=== PATIENT | female | born 1950 | race Two or more races ===

== ENCOUNTER 2021-01-24 07:04 | Inpatient (IN) | payer OTHER ==
[~2021-01-24] VITALS: Ht 167.6 cm; Wt 54.4 kg
[2021-01-28 16:00] VITALS: BP 122/54
[2021-01-28] MEDS ORDERED: FLUT1BLS IH (16:26)
--- NOTE | 2021-01-28 16:30 | NUR ---
Pt admitted s/p right knee arthroplasty, performed 01/22 at [facility]. A&O x3. Valentin speaking. 2L via nasal cannula. No s&s of acute distress. No reports of pain. Saturating at 97%. Voiding via stewart catheter, inserted 01/22. Full weight bearing, CGA with PT. Resting in bed. Bed at lowest position. Call light in reach. Will continue to monitor.
[2021-01-28] MEDS ORDERED: ESCI-9 PO (16:48)
[2021-01-28] MEDS ORDERED: MEMA10TA PO (16:48)
[2021-01-28] MEDS ORDERED: cholecalciferol PO (16:48)
[2021-01-28] MEDS ORDERED: LISI40TA13 PO (16:48)
[2021-01-28] MEDS ORDERED: MELO-105 PO (16:48)
[2021-01-28] MEDS ORDERED: FLUT1BLS6 IH (16:48)
[2021-01-28] MEDS ORDERED: ASPI-612 PO (16:48)
[2021-01-28] MEDS ORDERED: ALBU8.5H8 INH (16:48)
[2021-01-28] MEDS ORDERED: ALEN70TA80 PO (16:48)
[2021-01-28] MEDS ORDERED: PROP20TA7 PO (16:48)
[2021-01-28] MEDS ORDERED: Z GUARD REMEDY PASTE 57 GM TUBE TOP PRN (17:00)
[2021-01-28] MEDS ORDERED: [UNRECOGNIZED DRUG - OTHER] PO SCH (19:30)
[2021-01-28 20:54] VITALS: BP 136/67
[2021-01-28] MEDS: DOCUSATE SODIUM 100 MG CAPSULE PO SCH (21:00)
[2021-01-29 04:41] VITALS: BP 126/69
[2021-01-29 06:04] LABS: HEMATOCRIT 26.9 % (31.2-41.9); MEAN CORPUSCULAR HEMOGLOBIN 30.2 uug (24.7-32.8); MEAN CORPUSCULAR VOLUME 89.3 fL (75.5-95.3); PLATELET COUNT (AUTO) 402 K/uL (179-408)
[2021-01-29 07:35] LABS: THYROID STIMULATING HORMONE 1.537 mIU/mL (0.358-3.740)
[2021-01-29 07:53] LABS: BILIRUBIN,TOTAL 0.9 mg/dL (0.2-1.0); CREATININE 0.7 mg/dL (0.6-1.3); MAGNESIUM 2.3 mg/dL (1.8-2.4); PHOSPHOROUS 4.3 mg/dL (2.5-4.9); POTASSIUM 4.2 mmol/L (3.5-5.1); TOTAL PROTEIN, SERUM 6.9 g/dL (6.4-8.2)
[2021-01-29 07:59] VITALS: BP 126/68
[2021-01-29] MEDS: LISINOPRIL 20 MG TABLET PO SCH (08:13)
[2021-01-29] MEDS: ASPIRIN 325 MG TABLET PO SCH (08:14)
[2021-01-29] MEDS: ESCITALOPRAM OXALATE 10 MG TABLET PO SCH (08:14)
[2021-01-29] MEDS: PROPRANOLOL HCL 20 MG TABLET PO SCH ×2 (08:14→17:18)
[2021-01-29] MEDS: MEMANTINE HCL 10 MG TABLET PO SCH ×2 (08:14→17:18)
[2021-01-29] MEDS: FLUTICASONE/VILANTEROL 1 EACH BLST.W.DEV IH SCH (08:20)
[2021-01-29] MEDS ORDERED: Medication Not On Formulary EA (Lisinopril 40 MG) PO SCH (09:00)
[2021-01-29] MEDS ORDERED: MELOXICAM 7.5 MG TABLET PO SCH (09:00)
[2021-01-29] MEDS ORDERED: MIRALAX 17 GM POWD.PACK PO PRN (14:45)
[2021-01-29 16:00] VITALS: BP 135/61
[2021-01-29 20:00] VITALS: BP 122/61
[2021-01-29] MEDS ORDERED: MELATONIN 3 MG TABLET PO PRN (20:15)
[2021-01-29] MEDS: DOCUSATE SODIUM 100 MG CAPSULE PO SCH (21:09)
--- NOTE | 2021-01-29 21:45 | NUR ---
Sleeping medication of Melatonin ordered per patient's son request.
[2021-01-30 05:28] VITALS: BP 96/54
[2021-01-30] MEDS: ALENDRONATE SODIUM 70 MG TABLET PO SCH (05:42)
[2021-01-30 06:10] LABS: HEMATOCRIT 25.5 % (31.2-41.9); MEAN CORPUSCULAR HEMOGLOBIN 30.8 uug (24.7-32.8); MEAN CORPUSCULAR VOLUME 88.8 fL (75.5-95.3); PLATELET COUNT (AUTO) 477 K/uL (179-408)
--- NOTE | 2021-01-30 07:00 | NUR ---
Shift End Report: VS WNL. No complaint presented. Refused Melatonin offered last night. All needs attended and met. No significant event reported. No s/s of hypo/hyperglycemia. Continue current rehab plan of care.
[2021-01-30 07:19] LABS: CREATININE 0.8 mg/dL (0.6-1.3); PHOSPHOROUS 3.9 mg/dL (2.5-4.9); POTASSIUM 4.7 mmol/L (3.5-5.1)
[2021-01-30 08:00] VITALS: BP 102/53
[2021-01-30] MEDS ORDERED: MELOXICAM 7.5 MG TABLET PO PRN (08:00)
[2021-01-30] MEDS: PROPRANOLOL HCL 20 MG TABLET PO SCH ×3 (09:00→18:02)
[2021-01-30] MEDS: LISINOPRIL 20 MG TABLET PO SCH (09:00)
[2021-01-30] MEDS: ASPIRIN 325 MG TABLET PO SCH (09:09)
[2021-01-30] MEDS: ERGOCALCIFEROL 50,000 UNIT CAPSULE PO SCH (09:09)
[2021-01-30] MEDS: MEMANTINE HCL 10 MG TABLET PO SCH ×2 (09:10→17:47)
[2021-01-30] MEDS: ESCITALOPRAM OXALATE 10 MG TABLET PO SCH (09:10)
[2021-01-30] MEDS: FLUTICASONE/VILANTEROL 1 EACH BLST.W.DEV IH SCH (09:12)
--- NOTE | 2021-01-30 09:12 | NUR ---
c/o nausea refused am meds for now. c/o pain hydrocodone given she threw up 400ml clear liquid
--- NOTE | 2021-01-30 13:36 | NUR ---
INTERDISCIPLINARY TEAM CONFERENCE
--- NOTE | 2021-01-30 14:21 | NUR ---
INDIVIDUALIZED PLAN OF CARE
[2021-01-30 16:00] VITALS: BP 93/52
[2021-01-30] MEDS: DOCUSATE SODIUM 100 MG CAPSULE PO SCH (20:15)
[2021-01-30 21:30] VITALS: BP 94/44
--- NOTE | 2021-01-30 22:58 | NUR ---
Patient on bed with family at bedside, Valentin speaking and use gestures to communicate. On O2 at 2 lpm via NC, with no respiratory distress noted. No c/o pain or discomforts at this time. No episode of N/V. Due medication given and tolerated well. All needs attended. Call light placed within reach. Will continue to monitor.
[2021-01-31 04:40] VITALS: BP 107/54
--- NOTE | 2021-01-31 06:39 | NUR ---
Patient slept throughout the night, easily arousable for care. On O2 at 2 lpm via NC, with no respiratory distress noted. No c/o pain or discomfort at this time. All needs attended. Call light placed within reach. Frequent visual checks done. Will endorse for continuity of care.
[2021-01-31 07:36] VITALS: BP 98/53
[2021-01-31] MEDS: FLUTICASONE/VILANTEROL 1 EACH BLST.W.DEV IH SCH (08:48)
[2021-01-31] MEDS: ASPIRIN 325 MG TABLET PO SCH (08:48)
[2021-01-31] MEDS: ESCITALOPRAM OXALATE 10 MG TABLET PO SCH (08:50)
[2021-01-31] MEDS: MEMANTINE HCL 10 MG TABLET PO SCH ×2 (08:50→17:25)
[2021-01-31] MEDS ORDERED: LISINOPRIL 20 MG TABLET PO SCH (09:00)
--- NOTE | 2021-01-31 13:15 | NUR ---
PT NOTE PT ASSISTED WITH CPM SET UP POST LUNCH, PT ABLE TO PONCHO 75DEG KNEE FLEXION WITH NO APPARENT DISTRESS. POWER DUKES INFORMED PT WILL NEED TO BE ASSISTED AFTER 2 HRS WITH CPM AT 1530.
[2021-01-31 14:59] VITALS: BP 108/56
[2021-01-31] MEDS: PROPRANOLOL HCL 20 MG TABLET PO SCH (17:00)
[2021-01-31] MEDS: HYDROCODONE/APAP 5-325MG TABLET PO PRN (17:26)
[2021-01-31] MEDS: ENSURE ENLIVE (VAN) 240 ML LIQUID PO SCH (17:32)
--- NOTE | 2021-01-31 18:00 | NUR ---
Informed Dr. Plata regarding patient's low BP range and asked MD for parameters for administering Inderal and lisinopril and per MD hold medication for SBP less than 110. Patient participated with PT and was placed on the CPM for 2 hrs up to 75 degrees. Will continue to monitor and will endorse accordingly.
[2021-01-31 20:12] VITALS: BP 91/49
[2021-01-31] MEDS: DOCUSATE SODIUM 100 MG CAPSULE PO SCH (20:23)
--- NOTE | 2021-01-31 21:43 | NUR ---
Patient on bed with family at bedside. On O2 at 1 lpm via NC saturating at 97%, with no respiratory distress noted. No c/o pain or discomforts at this time. Due medication given and tolerated well. All needs attended. Call light placed within reach. Will continue to monitor.
[2021-02-01 04:40] VITALS: BP 95/53
--- NOTE | 2021-02-01 06:28 | NUR ---
Patient slept throughout the night, easily arousable for care. On O2 at 1 lpm via NC, with no respiratory distress noted. No c/o pain or discomfort at this time. Encouraged and offered fluid intake as tolerated. All needs attended. Call light placed within reach. Frequent visual checks done. Will endorse for continuity of care.
[2021-02-01 07:59] VITALS: BP 110/58
[2021-02-01] MEDS: ASPIRIN 325 MG TABLET PO SCH (08:17)
[2021-02-01] MEDS: MEMANTINE HCL 10 MG TABLET PO SCH ×2 (08:17→16:45)
[2021-02-01] MEDS: FLUTICASONE/VILANTEROL 1 EACH BLST.W.DEV IH SCH (08:18)
[2021-02-01] MEDS: ESCITALOPRAM OXALATE 10 MG TABLET PO SCH (08:18)
[2021-02-01] MEDS: ENSURE ENLIVE (VAN) 240 ML LIQUID PO SCH ×2 (08:18→16:45)
[2021-02-01] MEDS: PROPRANOLOL HCL 20 MG TABLET PO SCH ×2 (08:19→16:45)
[2021-02-01] MEDS ORDERED: MAGNESIUM HYDROXIDE 30 ML LIQUID UDC PO PRN (12:30)
[2021-02-01] MEDS: MIRALAX 17 GM POWD.PACK PO SCH (13:00)
--- NOTE | 2021-02-01 13:18 | NUR ---
miralax PRN dose administered for today
[2021-02-01 16:06] VITALS: BP 127/64
--- NOTE | 2021-02-01 18:42 | NUR ---
no acute distress noted during shift
[2021-02-01 19:48] VITALS: BP 118/58
[2021-02-01] MEDS: DOCUSATE SODIUM 100 MG CAPSULE PO SCH (20:11)
[2021-02-02 04:16] VITALS: BP 100/50
--- NOTE | 2021-02-02 06:40 | NUR ---
Shift End Report: VS stable. Slept good. All needs attended and met. No significant event reported all night. No complaint of pain. Continue care as planned.
[2021-02-02 07:04] LABS: CREATININE 0.8 mg/dL (0.6-1.3)
[2021-02-02] MEDS: ASPIRIN 325 MG TABLET PO SCH (08:14)
[2021-02-02] MEDS: MEMANTINE HCL 10 MG TABLET PO SCH ×2 (08:14→16:53)
[2021-02-02] MEDS: ESCITALOPRAM OXALATE 10 MG TABLET PO SCH (08:15)
[2021-02-02] MEDS: PROPRANOLOL HCL 20 MG TABLET PO SCH ×2 (08:15→16:54)
[2021-02-02] MEDS: ENSURE ENLIVE (VAN) 240 ML LIQUID PO SCH ×2 (08:15→16:54)
[2021-02-02] MEDS: FLUTICASONE/VILANTEROL 1 EACH BLST.W.DEV IH SCH (08:16)
[2021-02-02] MEDS: MIRALAX 17 GM POWD.PACK PO SCH (08:16)
[2021-02-02 08:26] VITALS: BP 95/47
[2021-02-02 15:50] VITALS: BP 109/57
[2021-02-02] MEDS: HYDROCODONE/APAP 5-325MG TABLET PO PRN (16:54)
[2021-02-02] MEDS: MAG HYDROX/AL HYDROX/SIMETH 30 ML LIQUID UDC PO PRN (17:32)
[2021-02-02] MEDS: CALCIUM CARBONATE 500 MG TAB.CHEW PO PRN (17:32)
--- NOTE | 2021-02-02 18:07 | NUR ---
patient is alert, oriented x4, no events noted this shift, pain managed with pain medication, and ice pack, incision site is clean and dry, no drainage noted, participated with PT, OT services, tolerated fairly.
--- NOTE | 2021-02-02 19:21 | NUR ---
paged oncall orthopedic for dr ledbetter to clarify the order for knee immobilizer, if can be removed during physical therapy, waiting for response, endorsed to next shift accordingly
[2021-02-02 19:53] LABS: HEMATOCRIT 24.8 % (31.2-41.9); MEAN CORPUSCULAR HEMOGLOBIN 30.3 uug (24.7-32.8); MEAN CORPUSCULAR VOLUME 88.1 fL (75.5-95.3); PLATELET COUNT (AUTO) 643 K/uL (179-408)
[2021-02-02 19:57] LABS: CREATININE 0.9 mg/dL (0.6-1.3); POTASSIUM 4.3 mmol/L (3.5-5.1)
[2021-02-02 20:23] VITALS: BP 100/49
[2021-02-02] MEDS: DOCUSATE SODIUM 100 MG CAPSULE PO SCH ×2 (20:23→20:24)
--- NOTE | 2021-02-02 20:35 | NUR ---
[facility] called informing nurse that the principal automation engineer MD of Dr Edward is not responding/returning call. Will endorse accordingly to oncoming nurse.
[2021-02-03 04:40] VITALS: BP 98/52
--- NOTE | 2021-02-03 06:17 | NUR ---
Shift End Report: No significant event reported. VS stable. No complaint presented. All needs attended and met. Continue current rehab plan of care.
[2021-02-03 07:50] VITALS: BP 100/51
--- NOTE | 2021-02-03 08:00 | NUR ---
Patient in bed, alert and oriented x 4, cooperative upon assessment, all due meds given per MD order. Patient went off the unit for therapy and went back after an hour. Instructed patient that I need a urine sample from her and patient verbalized understanding.
[2021-02-03] MEDS: ASPIRIN 325 MG TABLET PO SCH (08:12)
[2021-02-03] MEDS: ESCITALOPRAM OXALATE 10 MG TABLET PO SCH (08:13)
[2021-02-03] MEDS: MEMANTINE HCL 10 MG TABLET PO SCH ×2 (08:13→16:28)
[2021-02-03] MEDS: ENSURE ENLIVE (VAN) 240 ML LIQUID PO SCH ×2 (08:14→17:12)
[2021-02-03] MEDS: PROPRANOLOL HCL 20 MG TABLET PO SCH ×2 (08:17→16:28)
[2021-02-03] MEDS: FLUTICASONE/VILANTEROL 1 EACH BLST.W.DEV IH SCH (08:19)
[2021-02-03] MEDS: MIRALAX 17 GM POWD.PACK PO SCH (08:21)
--- NOTE | 2021-02-03 12:21 | NUR ---
Patient on CPM machine and asleep with no s/s of distress. Patient in room air saturating at 95%
[2021-02-03 13:33] LABS: *BILIRUBIN,URIN NEGATIVE (NEGATIVE); *BLOOD, URINE NEGATIVE (NEGATIVE); *COLOR,URINE YELLOW (YELLOW); *KETONES,URINE NEGATIVE (NEGATIVE); *UROBILINOGEN,URINE 0.2 E.U./dl (NORMAL); LEUKOCYTE ESTERASE ,URINE TRACE (NEGATIVE); NITRITE, URINE NEGATIVE (NEGATIVE); UGLUCOSE NEGATIVE (NEGATIVE)
[2021-02-03 15:04] LABS: *CLARITY,URINE SLIGHTLY HAZY (CLEAR); BACTERIA,URINE FEW /HPF (NONE SEEN); RBC,URINE 0-3 /HPF (0-3); SQUAMOUS EPITHELIAL CELL,UR MODERATE /HPF (NONE SEEN)
[2021-02-03] MEDS: ACETAMINOPHEN 325 MG TABLET PO PRN (15:29)
[2021-02-03 15:31] VITALS: BP 115/56
--- NOTE | 2021-02-03 16:00 | NUR ---
Patient's temp is 100, Tylenol is given after an hour patient's temp is 99.2. Notified Dr. Plata of patient's temp and her lab results on 02/02/21. Dr. Plata ordered for Keflex 500 mg BID and CXR.
[2021-02-03] MEDS: CEphaleXIN 500 MG CAPSULE PO SCH (18:11)
[2021-02-03 20:21] VITALS: BP 111/54
[2021-02-03] MEDS: DOCUSATE SODIUM 100 MG CAPSULE PO SCH (20:40)
--- NOTE | 2021-02-03 21:15 | NUR ---
Colace was not given at this time. Family reported that she had 6x BM today, denies loose/watery but with streaks of fresh blood. made aware.
[2021-02-04 05:41] VITALS: BP 103/46
[2021-02-04 06:18] LABS: HEMATOCRIT 24.5 % (31.2-41.9); MEAN CORPUSCULAR HEMOGLOBIN 30.2 uug (24.7-32.8); MEAN CORPUSCULAR VOLUME 89.2 fL (75.5-95.3); PLATELET COUNT (AUTO) 671 K/uL (179-408)
[2021-02-04 06:49] LABS: CREATININE 0.7 mg/dL (0.6-1.3); POTASSIUM 4.1 mmol/L (3.5-5.1)
[2021-02-04 08:00] VITALS: BP 98/57
[2021-02-04] MEDS: MIRALAX 17 GM POWD.PACK PO SCH (09:00)
[2021-02-04] MEDS: PROPRANOLOL HCL 20 MG TABLET PO SCH ×2 (09:00→16:36)
[2021-02-04] MEDS: ASPIRIN 325 MG TABLET PO SCH (09:16)
[2021-02-04] MEDS: FLUTICASONE/VILANTEROL 1 EACH BLST.W.DEV IH SCH (09:16)
[2021-02-04] MEDS: MEMANTINE HCL 10 MG TABLET PO SCH ×2 (09:16→16:36)
[2021-02-04] MEDS: ENSURE ENLIVE (VAN) 240 ML LIQUID PO SCH ×2 (09:17→16:36)
[2021-02-04] MEDS: ESCITALOPRAM OXALATE 10 MG TABLET PO SCH (09:17)
[2021-02-04] MEDS: CEphaleXIN 500 MG CAPSULE PO SCH ×2 (09:17→16:36)
[2021-02-04] MEDS: HYDROCODONE/APAP 5-325MG TABLET PO PRN (14:06)
[2021-02-04 15:23] VITALS: BP 114/61
[2021-02-04 15:58] VITALS: BP 114/61
--- NOTE | 2021-02-04 17:29 | NUR ---
Removed 32 tonja along incisional site. Patient tolerated well. No c/o pain. No signs or symptoms of infection noted. Steri-strips applied. Will continue to monitor.
[2021-02-04] MEDS: DOCUSATE SODIUM 100 MG CAPSULE PO SCH (20:03)
[2021-02-04 20:31] VITALS: BP 119/59
[2021-02-05 04:24] VITALS: BP 112/59
[2021-02-05] MEDS: HYDROCODONE/APAP 5-325MG TABLET PO PRN (04:50)
--- NOTE | 2021-02-05 04:52 | NUR ---
Complaint of right knee pain after ambulating from the bathroom, medicated as needed for pain. Will monitor therapeutic effect.
[2021-02-05] MEDS: ASPIRIN 325 MG TABLET PO SCH (08:27)
[2021-02-05] MEDS: ESCITALOPRAM OXALATE 10 MG TABLET PO SCH (08:27)
[2021-02-05] MEDS: FLUTICASONE/VILANTEROL 1 EACH BLST.W.DEV IH SCH (08:27)
[2021-02-05] MEDS: PROPRANOLOL HCL 20 MG TABLET PO SCH ×2 (08:28→16:46)
[2021-02-05] MEDS: MEMANTINE HCL 10 MG TABLET PO SCH ×2 (08:28→16:45)
[2021-02-05] MEDS: CEphaleXIN 500 MG CAPSULE PO SCH ×2 (08:28→16:45)
[2021-02-05] MEDS: ENSURE ENLIVE (VAN) 240 ML LIQUID PO SCH ×2 (08:29→16:47)
[2021-02-05] MEDS: MIRALAX 17 GM POWD.PACK PO SCH (08:29)
[2021-02-05 11:30] VITALS: BP 105/59
[2021-02-05 15:17] VITALS: BP 108/57
[2021-02-05] MEDS: ACETAMINOPHEN 325 MG TABLET PO PRN (16:46)
--- NOTE | 2021-02-05 17:45 | NUR ---
Temperature of 99.5. Tylenol administered. Pt. Tolerated well. Extra layers removed. Reassessed after an hour, temp of 98.0. Patient resting comfortably. No c/o pain. Safety precautions in place. Will continue to monitor.
[2021-02-05 20:10] VITALS: BP 118/49
[2021-02-05] MEDS: DOCUSATE SODIUM 100 MG CAPSULE PO SCH (20:34)
[2021-02-06] MEDS: HYDROCODONE/APAP 5-325MG TABLET PO PRN ×3 (00:52→20:28)
[2021-02-06 04:25] VITALS: BP 108/51
[2021-02-06] MEDS: ALENDRONATE SODIUM 70 MG TABLET PO SCH (06:12)
[2021-02-06 07:32] VITALS: BP 128/63
[2021-02-06] MEDS: MIRALAX 17 GM POWD.PACK PO SCH (09:00)
[2021-02-06] MEDS: MEMANTINE HCL 10 MG TABLET PO SCH ×2 (09:01→16:06)
[2021-02-06] MEDS: ERGOCALCIFEROL 50,000 UNIT CAPSULE PO SCH (09:01)
[2021-02-06] MEDS: CEphaleXIN 500 MG CAPSULE PO SCH ×2 (09:01→16:06)
[2021-02-06] MEDS: ESCITALOPRAM OXALATE 10 MG TABLET PO SCH (09:01)
[2021-02-06] MEDS: ASPIRIN 325 MG TABLET PO SCH (09:01)
[2021-02-06] MEDS: FLUTICASONE/VILANTEROL 1 EACH BLST.W.DEV IH SCH (09:04)
[2021-02-06] MEDS: PROPRANOLOL HCL 20 MG TABLET PO SCH ×2 (09:04→16:07)
[2021-02-06] MEDS: ENSURE ENLIVE (VAN) 240 ML LIQUID PO SCH ×2 (09:04→17:32)
--- NOTE | 2021-02-06 13:06 | NUR ---
INTERDISCIPLINARY TEAM CONFERENCE
--- NOTE | 2021-02-06 14:32 | NUR ---
Patient in bed, alert and oriented x 4, no complains of pain at this time, placed call light within reach. All due meds given per MD order. Patient went off the unit for therapy and came back after an hour. Remind patient that I need a stool sample from her and patient verbalized understanding. Patient in room air saturating at 95% . All needs met in a timely manner.
[2021-02-06 15:01] VITALS: BP 106/49
[2021-02-06] MEDS: DOCUSATE SODIUM 100 MG CAPSULE PO SCH (20:30)
[2021-02-06 21:20] VITALS: BP 130/61
[2021-02-06 21:24] LABS: *OCCULT BLOOD STOOL NEGATIVE (NEGATIVE)
[2021-02-07 04:00] VITALS: BP 129/59
[2021-02-07] MEDS: PANTOPRAZOLE SODIUM 40 MG TABLET.DR PO SCH (06:25)
[2021-02-07 06:34] LABS: HEMATOCRIT 25.7 % (31.2-41.9); MEAN CORPUSCULAR HEMOGLOBIN 29.7 uug (24.7-32.8); MEAN CORPUSCULAR VOLUME 89.6 fL (75.5-95.3); PLATELET COUNT (AUTO) 654 K/uL (179-408)
[2021-02-07 07:17] LABS: BILIRUBIN,TOTAL 0.4 mg/dL (0.2-1.0); CREATININE 0.7 mg/dL (0.6-1.3); PHOSPHOROUS 3.9 mg/dL (2.5-4.9); POTASSIUM 4.1 mmol/L (3.5-5.1); TOTAL PROTEIN, SERUM 6.5 g/dL (6.4-8.2)
[2021-02-07 07:24] LABS: MAGNESIUM 2.1 mg/dL (1.8-2.4)
[2021-02-07 08:00] VITALS: BP 136/63
[2021-02-07] MEDS: CEphaleXIN 500 MG CAPSULE PO SCH ×2 (09:01→17:11)
[2021-02-07] MEDS: ASPIRIN EC 325 MG TABLET.DR PO SCH (09:02)
[2021-02-07] MEDS: PROPRANOLOL HCL 20 MG TABLET PO SCH ×2 (09:02→17:13)
[2021-02-07] MEDS: MEMANTINE HCL 10 MG TABLET PO SCH ×2 (09:02→17:10)
[2021-02-07] MEDS: MIRALAX 17 GM POWD.PACK PO SCH (09:03)
[2021-02-07] MEDS: ESCITALOPRAM OXALATE 10 MG TABLET PO SCH (09:03)
[2021-02-07] MEDS: ENSURE ENLIVE (VAN) 240 ML LIQUID PO SCH ×2 (09:03→17:10)
[2021-02-07] MEDS: FLUTICASONE/VILANTEROL 1 EACH BLST.W.DEV IH SCH (09:04)
[2021-02-07] MEDS: CYANOCOBALAMIN 1000 MCG/ML VIAL IM SCH (10:24)
[2021-02-07] MEDS: HYDROCODONE/APAP 5-325MG TABLET PO PRN (13:22)
[2021-02-07 16:00] VITALS: BP 117/62
[2021-02-07 20:05] VITALS: BP 114/59
[2021-02-07] MEDS: DOCUSATE SODIUM 100 MG CAPSULE PO SCH (21:00)
--- NOTE | 2021-02-07 22:02 | NUR ---
PT'S DAUGHTER WAS AT THE BED, SHE SAID TO HOLD COLACE BECAUSE PT HAD BM x 4, AND TO GIVE PAIN MEDS BEFORE THERAPY. WILL ENDORSED TO NEXT SHIFT.
[2021-02-08] MEDS: CALCIUM CARBONATE 500 MG TAB.CHEW PO PRN ×2 (01:08→13:24)
[2021-02-08 04:18] VITALS: BP 106/50
[2021-02-08] MEDS: PANTOPRAZOLE SODIUM 40 MG TABLET.DR PO SCH (07:01)
[2021-02-08 08:08] VITALS: BP 103/55
[2021-02-08] MEDS: PROPRANOLOL HCL 20 MG TABLET PO SCH ×2 (09:00→16:49)
[2021-02-08] MEDS: MIRALAX 17 GM POWD.PACK PO SCH (09:00)
[2021-02-08] MEDS: MAG HYDROX/AL HYDROX/SIMETH 30 ML LIQUID UDC PO PRN (09:04)
[2021-02-08] MEDS: MEMANTINE HCL 10 MG TABLET PO SCH ×2 (09:07→16:49)
[2021-02-08] MEDS: ESCITALOPRAM OXALATE 10 MG TABLET PO SCH (09:07)
[2021-02-08] MEDS: CEphaleXIN 500 MG CAPSULE PO SCH (09:07)
[2021-02-08] MEDS: CYANOCOBALAMIN 1000 MCG/ML VIAL IM SCH (09:12)
[2021-02-08] MEDS: ASPIRIN EC 325 MG TABLET.DR PO SCH (09:12)
[2021-02-08] MEDS: ENSURE ENLIVE (VAN) 240 ML LIQUID PO SCH ×2 (09:13→16:49)
[2021-02-08] MEDS: FLUTICASONE/VILANTEROL 1 EACH BLST.W.DEV IH SCH (09:17)
[2021-02-08] MEDS: HYDROCODONE/APAP 5-325MG TABLET PO PRN ×2 (09:30→15:33)
[2021-02-08 16:00] VITALS: BP 103/59
--- NOTE | 2021-02-08 18:01 | NUR ---
Patient is alert/oriented, Valentin speaking. Able to verbalize simple needs. Reported loose BM prior to start of the shift, MD made aware. Patient reported feeling bloated, PRN meds given as ordered, effective.PRN pain medication given as ordered prior to therapy. She is on CPM 70 degree for 2hrs in the am, tolerated well. Steritrips to the right knee intact, no bleeding or drainage noted. Dr Rowland made rounds, verbalized to monitor patient for LBM, no BM noted the whole shift. Dr. Fernando made rounds. Frequent visual check done. Kept call light within reach. Assisted with ADLs. All needs attended. Kept environment safe. All due meds given as ordered. Will endorse to the next shift for continuity of care.
[2021-02-08 20:39] VITALS: BP 109/64
[2021-02-08] MEDS: DOCUSATE SODIUM 100 MG CAPSULE PO SCH (21:00)
[2021-02-09] MEDS: ACETAMINOPHEN 325 MG TABLET PO PRN (00:41)
[2021-02-09 04:43] VITALS: BP 100/54
[2021-02-09] MEDS: PANTOPRAZOLE SODIUM 40 MG TABLET.DR PO SCH (06:04)
[2021-02-09 08:00] VITALS: BP 142/68
[2021-02-09] MEDS: MIRALAX 17 GM POWD.PACK PO SCH (09:00)
[2021-02-09] MEDS: ESCITALOPRAM OXALATE 10 MG TABLET PO SCH (09:13)
[2021-02-09] MEDS: PROPRANOLOL HCL 20 MG TABLET PO SCH ×2 (09:13→17:03)
[2021-02-09] MEDS: CYANOCOBALAMIN 1000 MCG/ML VIAL IM SCH (09:13)
[2021-02-09] MEDS: ASPIRIN EC 325 MG TABLET.DR PO SCH (09:13)
[2021-02-09] MEDS: MEMANTINE HCL 10 MG TABLET PO SCH ×2 (09:13→17:02)
[2021-02-09] MEDS: FLUTICASONE/VILANTEROL 1 EACH BLST.W.DEV IH SCH (09:15)
[2021-02-09] MEDS: ENSURE ENLIVE (VAN) 240 ML LIQUID PO SCH ×2 (09:19→17:02)
[2021-02-09] MEDS: HYDROCODONE/APAP 5-325MG TABLET PO PRN ×2 (12:57→20:37)
[2021-02-09 16:00] VITALS: BP 107/57
--- NOTE | 2021-02-09 16:00 | NUR ---
TOLERATED CPM ORDERED FOR 2 HOURS.
[2021-02-09 20:19] VITALS: BP 107/56
[2021-02-09] MEDS: DOCUSATE SODIUM 100 MG CAPSULE PO SCH (20:37)
--- NOTE | 2021-02-09 20:37 | NUR ---
RECEIVED IN BED AWAKE ALERT AND VERBALLY RESPONSIVE WITH LANGUAGE BARRIERS BUT IS ABLE TO MAKE SIMPLE NEEDS KNOWN MEDICATED WITH [facility] FOR C/O INCISIONAL PAIN ORDERED AND HELPFUL ASSISTED TO THE BATHROOM VOIDED WELL AND BACK TO BED CALL LIGHTS AND HER PERSONAL BELONGINGS ARE WITHIN EASY REACH MADE COMFORTABLE AND WILL CONTINUE TO OBSERVE AND PROVIDE COMFORT.
[2021-02-10 04:38] VITALS: BP 135/62
[2021-02-10] MEDS: PANTOPRAZOLE SODIUM 40 MG TABLET.DR PO SCH (06:09)
--- NOTE | 2021-02-10 06:23 | NUR ---
slept most of the nite , no complaits made.
--- NOTE | 2021-02-10 07:35 | NUR ---
PATIENT IS AWAKE ALERT AND ABLE TO MAKE SIMPLE NEEDS KNOWN CONTINUE TO HAVE LANGUAGE ISSUES ON ROOM AIR WITH NO SHORTNESS OF BREATH AT THIS TIME RIGHT KNEE INCISION IS INTACT WITH NO DRAINAGE OR S/S OF INFECTION ABLE TO AMBULATE WITH MIN ASSIST CALL LIGHTS AND PERSONAL BELONGINGS ARE WITHIN EASY REACH AT THIS TIME WILL CONTINUE THE REHABILITATION PROCESS ORDERED WILL CONTINUE TO OBSERVE.
[2021-02-10 08:27] VITALS: BP 115/67
[2021-02-10] MEDS: MEMANTINE HCL 10 MG TABLET PO SCH ×2 (08:34→17:24)
[2021-02-10] MEDS: ASPIRIN EC 325 MG TABLET.DR PO SCH (08:34)
[2021-02-10] MEDS: ESCITALOPRAM OXALATE 10 MG TABLET PO SCH (08:34)
[2021-02-10] MEDS: PROPRANOLOL HCL 20 MG TABLET PO SCH ×2 (08:35→17:25)
[2021-02-10] MEDS: CYANOCOBALAMIN 1000 MCG/ML VIAL IM SCH (08:35)
[2021-02-10] MEDS: HYDROCODONE/APAP 5-325MG TABLET PO PRN ×2 (08:36→20:36)
[2021-02-10] MEDS: FLUTICASONE/VILANTEROL 1 EACH BLST.W.DEV IH SCH (08:38)
[2021-02-10] MEDS: MIRALAX 17 GM POWD.PACK PO SCH (09:00)
[2021-02-10] MEDS: ENSURE ENLIVE (VAN) 240 ML LIQUID PO SCH ×2 (09:14→17:25)
--- NOTE | 2021-02-10 14:30 | NUR ---
PARTICIPATED AND TOLERATED PHYSICAL THERAPEUTIC EXERCISES ORDERED.ALSO WAS ABLE TO TOLERATE CPM TO HER RIGHT KNEE REMAINS C/D/I AT THIS TIME WILL CONTINUE TO OBSERVE.
[2021-02-10 16:05] VITALS: BP 103/51
[2021-02-10 20:21] VITALS: BP 123/60
[2021-02-10] MEDS: DOCUSATE SODIUM 100 MG CAPSULE PO SCH (20:36)
--- NOTE | 2021-02-10 20:36 | NUR ---
IN BED AWAKE ALERT AND AWARE COOPERATED C/O RIGHT KNEE INCISIONAL PAIN MEDICATED WITH [facility] ORDERED MADE COMFORTABLE INCISION SITE IS CLEAN AND DRY WITH NO DRAINAGE AT THIS TIME CALL LIGHTS WITHIN EASY REACH CHECKED ON ROUNDS WILL CONTINUE TO OBSERVE.
--- NOTE | 2021-02-10 22:00 | NUR ---
AWAKE ALERT AND ORIENTED DENIES PAIN OR DISCOMFORTS AT THIS TIME REMAIN ON IVF AND IV ANTIBIOTICS ORDERED WITH NO S/S OF ADVERSE OR ALLERGIC REACTIONS AT THIS TIME CALL LIGHTS AND PERSONAL BELONGINGS ARE WITHIN EASY REACH WILL CONTINUE TO OBSERVE.
[2021-02-11 04:46] VITALS: BP 103/55
[2021-02-11] MEDS: PANTOPRAZOLE SODIUM 40 MG TABLET.DR PO SCH (05:46)
--- NOTE | 2021-02-11 06:53 | NUR ---
SLEPT MOST OF THE NITE.
[2021-02-11 07:50] VITALS: BP 133/74
[2021-02-11] MEDS: MEMANTINE HCL 10 MG TABLET PO SCH (08:15)
[2021-02-11] MEDS: ASPIRIN EC 325 MG TABLET.DR PO SCH (08:15)
[2021-02-11 08:16] VITALS: BP 133/74
[2021-02-11] MEDS: CYANOCOBALAMIN 1000 MCG/ML VIAL IM SCH (08:16)
[2021-02-11] MEDS: ESCITALOPRAM OXALATE 10 MG TABLET PO SCH (08:16)
[2021-02-11] MEDS: PROPRANOLOL HCL 20 MG TABLET PO SCH (08:16)
[2021-02-11] MEDS: ENSURE ENLIVE (VAN) 240 ML LIQUID PO SCH (08:17)
[2021-02-11] MEDS: HYDROCODONE/APAP 5-325MG TABLET PO PRN (08:18)
[2021-02-11] MEDS: FLUTICASONE/VILANTEROL 1 EACH BLST.W.DEV IH SCH (08:21)
[2021-02-11] MEDS: MIRALAX 17 GM POWD.PACK PO SCH (08:25)
--- NOTE | 2021-02-11 12:15 | NUR ---
Discharge instructions provided to the patient and [id number] Ani at bedside with verbalized understanding. Discharge papers signed by and given to the patient including discharge medications and prescription. All belongings well accounted for. She denies any pain or discomfort at this time. Patient remains alert, oriented x 4, not in any form of distress. Right knee surgical incision well coaptated, dry with steri-strips on, no noted signs of infection. Spoke to Dr. Fernando and said he will order patient's [place] electronically to patient's preferred pharmacy [facility]. Discharge photo taken. Assisted with her needs. Patient assisted to the lobby via wheelchair. Patient discharged to home with [facility], picked up by [facility] via private car.
== END 2021-02-11 14:15 | disposition home health service (06) | DRG 862 ==
PROVIDERS: ADMIT Physical Medicine & Rehabilitation; ATTEND Physical Medicine & Rehabilitation
DX: Z47.1 Aftercare following joint replacement surgery (principal); F03.90 Unspecified dementia, unspecified severity, without behavioral disturbance, psychotic disturbance, mood disturbance, and anxiety; D62 Acute posthemorrhagic anemia; D68.59 Other primary thrombophilia; M17.11 Unilateral primary osteoarthritis, right knee; I10 Essential (primary) hypertension; J45.909 Unspecified asthma, uncomplicated; Z96.651 Presence of right artificial knee joint; M81.0 Age-related osteoporosis without current pathological fracture; F32.9 Major depressive disorder, single episode, unspecified; E53.8 Deficiency of other specified B group vitamins; E78.5 Hyperlipidemia, unspecified; E87.1 Hypo-osmolality and hyponatremia; F41.9 Anxiety disorder, unspecified; K21.9 Gastro-esophageal reflux disease without esophagitis; N39.0 Urinary tract infection, site not specified; K92.1 Melena; R11.2 Nausea with vomiting, unspecified
CPT/HCPCS: 36415; 71046; 83735; 83930; 83935; 84100; 84300; 84443; 85025; 87086; 97161; A4663; J3420; J8499